=== PATIENT | male | born 1995 | race American Indian/Alaskan Native ===

== ENCOUNTER 2018-10-18 11:32 | Emergency (ER) | payer SELFPAY ==
[2018-10-18 11:45] VITALS: BP 129/70
--- NOTE | 2018-10-18 11:46 | Emergency Department Report ---
Blank Doc - Documentation Documentation: This is a 23-year-old male that presents with abdominal pain x4 years and dental pain. Patient stated has been seen in several different hospitals for abdominal pain and was referred to primary care doctor but has not follow-up. Denies any nausea or vomiting. Denies any other complaints. Exam: abdominal tenderness diffuse no facial swelling. This initial assessment diagnostic orders/clinical plan/treatment(s) is/are subject to change based on patient's health status, clinical progression and re- assessment by fellow clinical providers in the ED. Further treatment and workup at subsequent clinical providers discretion. Patient/guardians urged not to elope from ED s their condition may be serious if not clinically assessed and managed. Initial orders include: 1-Patient sent to [facility] for further evaluation and treatment 2- labs 3- UA 4- abdominal xray
--- NOTE | 2018-10-18 12:08 | XRay Report ---
ABDOMINAL SERIES: History: Abdominal pain. Supine and upright views of the abdomen and frontal view of the chest are submitted. There is gas mixed with moderate stool throughout the colon. There are no dilated loops of bowel or air-fluid levels. There is no free intraperitoneal gas. The lungs are clear. IMPRESSION: Fecal retention.
[2018-10-18 12:31] LABS: Mucus,Urine FEW /HPF
[2018-10-18 12:36] LABS: Bilirubin,Urine NEG (Negative); Blood,Urine NEG (Negative); Color,Urine Yellow (Yellow)
[2018-10-18 13:08] LABS: Basophils # (Auto) 0.1 K/mm3 (0.0-0.1); Basophils % (Auto) 0.9 % (0.0-1.8); Eosinophils # (Auto) 0.3 K/mm3 (0.0-0.4); Eosinophils % (Auto) 3.4 % (0.0-4.3); Hematocrit 40.7 % (35.5-45.6); Hemoglobin 14.1 gm/dl (11.8-15.2); Lymphocytes # (Auto) 2.8 K/mm3 (1.2-5.4); Lymphocytes % (Auto) 28.7 % (13.4-35.0); Mean Corpuscular HGB Conc 35 % (32-34); Mean Corpuscular Volume 81 fl (84-94); Monocytes # (Auto) 0.9 K/mm3 (0.0-0.8); Monocytes % (Auto) 9.6 % (0.0-7.3); Platelet Count 174 K/mm3 (140-440); Red Blood Count 5.02 M/mm3 (3.65-5.03)
--- NOTE | 2018-10-18 13:13 | Emergency Department Report ---
ED General Adult HPI - General Chief complaint: Abdominal Pain Stated complaint: STOMACH PAIN/TOOTHACHE Time Seen by Provider: 10/18/18 11:36 Source: patient Mode of arrival: Ambulatory Limitations: No Limitations - History of Present Illness Initial comments: Patient is 23 years old male with no significant past medical history. Patient presented with a complaint first one is chronic abdominal pain for the last 4 years on and off. Patient denied any nausea or vomiting. Patient also complaining tooth pain. Severity scale (0 -10): 10 - Related Data Allergies Allergy/AdvReac Type Severity Reaction Status Date / Time No Known Allergies Allergy Unverified 10/18/18 11:45 ED Review of Systems ROS: Stated complaint: STOMACH PAIN/TOOTHACHE Other details as noted in HPI Comment: All other systems reviewed and negative Respiratory: denies: cough, shortness of breath Gastrointestinal: abdominal pain. denies: nausea, vomiting ED Past Medical Hx - Past Medical History Additional medical history: chronic abd pain - Surgical History Additional Surgical History: right ganglion cyst - Social History Smoking Status: Never Smoker Substance Use Type: None ED Physical Exam - General Limitations: No Limitations General appearance: alert, in no apparent distress - Head Head exam: Present: atraumatic, normocephalic, normal inspection - Eye Eye exam: Present: normal appearance, PERRL - ENT ENT exam: Present: normal exam, normal orophraynx, mucous membranes moist, other (dental caries) - Neck Neck exam: Present: normal inspection, full ROM. Absent: tenderness, meningismus, lymphadenopathy, thyromegaly - Respiratory Respiratory exam: Present: normal lung sounds bilaterally. Absent: respiratory distress, wheezes, rales, rhonchi, chest wall tenderness, accessory muscle use, decreased breath sounds, prolonged expiratory - Cardiovascular Cardiovascular Exam: Present: regular rate, normal rhythm, normal heart sounds - GI/Abdominal GI/Abdominal exam: Present: soft, normal bowel sounds. Absent: distended, tenderness, rigid, organomegaly, mass, bruit, pulsatile mass - Extremities Exam Extremities exam: Present: normal inspection, full ROM, normal capillary refill - Back Exam Back exam: Present: normal inspection, full ROM. Absent: tenderness, CVA tenderness (R), CVA tenderness (L), muscle spasm, paraspinal tenderness, vertebral tenderness - Neurological Exam Neurological exam: Present: alert, oriented X3, CN II-XII intact, normal gait, reflexes normal - Skin Skin exam: Present: warm, intact, normal color ED Course Vital Signs 10/18/18 11:43 Temperature 97.8 F Pulse Rate 76 Respiratory 18 Rate Blood Pressure 129/70 O2 Sat by Pulse 100 Oximetry ED Medical Decision Making - Lab Data Result diagrams: 10/18/18 12:43 Critical care attestation.: If time is entered above; I have spent that time in minutes in the direct care of this critically ill patient, excluding procedure time. ED Disposition Clinical Impression: Constipation, Abdominal pain, Dental caries Disposition: - TO HOME OR SELFCARE Is pt being admited?: No Condition: Stable Instructions: High Fiber Diet (ED), Constipation (ED), Dental Caries (ED) Referrals: JACQUI MORA MD [Primary Care Provider] - 3-5 Days
[2018-10-18 13:34] LABS: Alanine Aminotransferase 31 units/L (7-56); Albumin 4.1 g/dL (3.9-5); BUN/Creatinine Ratio 10; Blood Urea Nitrogen 10 mg/dL (9-20); Hemolysis Index 6
[2018-10-18] MEDS ORDERED: TORADOL IM ONE (13:59)
== END 2018-10-18 14:38 | disposition home or self-care (01) ==
LOC: ED 11:32
DX: K59.00 Constipation, unspecified (principal); K02.9 Dental caries, unspecified
CPT/HCPCS: 36415; 74022; 80053; 81001; 83690; 85025; 96372; 99283; J1885